=== PATIENT | male | born 1950 | race Caucasian/White ===

== ENCOUNTER 2017-02-22 10:05 | Inpatient (IN) | payer MEDICARE, OTHER ==
[~2017-02-22] VITALS: Ht 182.9 cm; Wt 100.0 kg
[2017-02-22] VITALS (9 sets, daily range): BP systolic 126–141; BP diastolic 62–80; PULSE 60–98; RESP 14–20; O2SAT 95–98
[~2017-02-22 10:05] MED LIST: ASPI-973 PO; Bupivacaine Liposome 1.3% 20 mL Inj NERVEBLOCK ONE; Lactated Ringer's 1,000 ML IV ONE; NAPR220C11 PO; Tranexamic Acid 100 mg/mL 10 mL Inj IV ONE; Vancomycin Inj 1,500 MG in 0.9% Sodium Chloride 500 ML IV ONE
[2017-02-22] MEDS ORDERED: Propofol 10,000 mCg/mL 20 mL Inj ONE (10:06)
[2017-02-22] MEDS ORDERED: Dexamethasone 4 mg/mL Inj ONE (10:06)
[2017-02-22] MEDS ORDERED: fentaNYL-PF 50 mCg/mL 2 mL Inj ONE (10:06)
[2017-02-22] MEDS ORDERED: Ondansetron 2 mg/mL 2 mL Inj ONE ×2 (10:06→10:29)
[2017-02-22] MEDS ORDERED: HYDROmorphone 1 mg/mL Inj ONE (10:29)
[2017-02-22] MEDS ORDERED: Tranexamic Acid 100 mg/mL 10 mL Inj ONE (12:23)
[2017-02-22] MEDS ORDERED: Bupivacaine Liposome 1.3% 20 mL Inj ONE (12:23)
[2017-02-22] MEDS ORDERED: 0.9% Sodium Chloride 100 ML ONE (12:24)
[2017-02-22] MEDS ORDERED: Gentamicin 40 mg/mL 2 mL Inj IRRIGATION ONE (12:50)
[2017-02-22] MEDS ORDERED: Bupivacaine-MPF 0.25% 30 mL Inj INFILTRATE ONE (12:51)
[2017-02-22] MEDS: CeFAZolin Inj 2 GM in IV Premix 1 EACH IV ONE ×2 (12:53→13:45)
--- NOTE | 2017-02-22 13:04 | PCM.HPANE ---
Patient Data Surgeon Admitting Provider: Attending Provider:Matt Varghese MD Primary Care Physician:Gabe Mccollum MD Other Provider:[facility] Anest[facility] Reason for Visit Right Knee Pain, S/P Right Knee Replacement RIGHT KNEE PAIN, S/P RIGHT KNEE REPLACEMENT Ht/WT & BMI Height (Feet): 6 Height (Inches): 0 Weight (Kilograms): 98.7 Body Mass Index 29.00 Allergies Coded Allergies: No Known Allergies (Verified , 01/07/04) Uncoded Allergies: No Known Allergies (Allergy, Severe, 04/04/05) Past Anesthesia History Anesthesia History: Denies:: Abnormal Airway, Anesthesia Reactions (minimal nausea ), Difficult Intubation, Fam Anesthesia Reaction, Fam Malignant Hypertherm, Malignant Hyperthermia Diabetes History Hx Diabetes?: No MRSA MRSA: No Medications Hypertension Medication: No Home Meds Incl Beta Frantz: No Reported Medications Naproxen Sodium (Aleve)220 Mg [id number] Mg PO BID PRN For Pain 02/17/17 Aspirin 81 Mg [id number] Mg PO DAILY Ref 0 02/17/17 History History of ENT Problems?: No HEENT History: Denies:: Abnormal Airway Cataracts (laser surgery/ contact in right eye ) Difficult Intubation Dysphagia Glaucoma Hearing Problem Sinus Problem TMJ Denture Type: None Teeth Condition: Within Normal Limits Hx of Heart Problems?: No Cardiovascular History: Denies:: AICD Edema Heart Murmur Hypertension Irregular Heartbeat Pacemaker Peripheral Vascular Rheumatic Fever Hx of Respiratory Problem?: No Respiratory History: Denies:: Asthma COPD Emphysema Oxygen Administration Pneumonia Tuberculosis Use of C-PAP Machine Hx Neurologic Problems?: Yes Neurological History: Denies:: CVA Headaches Multiple Sclerosis Parkinson's Disease Seizures Other Neurological Pertinent: hx of fall from ladder 2014 with occipital fx/ subdural hematoma. Hx of GI Problems?: No Hx of Problems?: No Genitourinary History: Denies:: Kidney Stones Urinary Tract Infection Male Hx: Positive for:: Prostate Problems (prostatectomy) Skin History: Denies:: History Skin Disorders? Pressure Ulcers Hx Musculoskeletal Problems?: Yes Musculoskeletal History: Positive for:: Joint Replacement (bilateral knees) Musculoskeletal Trauma (right knee current admission problem) Osteoarthritis Denies:: Back Injury Systemic Lupus Hx of Psycho/Social Problems?: No Psycho Social History: Denies:: Anxiety Hx Depression Hx Surgeries?: Yes (radical prostatectomy, knee x2) Hx Any Other Health Problems?: Yes Other History: Positive for:: Cancer (prostate) Hospitalization (fall from ladder 2015- occipital fx, subdural hematoma) Denies:: Thyroid Disease History Blood Transfusions: Positive for:: Accept Blood Products? Denies:: Blood Transfusions Hx Diabetes: No Hx Alcohol Use: NoAlcoholic Drinks Per Day: one drink weeklyHx Substance Use: No Smoking Status: Never Smoker Have You Smoked inLast 12 mo: No Stop/Bang S-Snoring: Do You Snore Loudly: Yes T-Tired: feel tired, fatigued: No O-Obsered: Observed not breath: No P-Blood Pressure: treated: No B- Body Mass Index > 35 kg/m2: No A- Age over 50: Yes N- Neck Large Circumference: No G- Gender Male: Yes MIRANDA Total Score: 3 Risk Assessment Category Category 1A: Patient has history of documented sleep apnea, and HAS NOT received any narcotic, sedative or anesthesia administration during this stay. Category 1B: Patient has history of documented sleep apnea, and HAS received any narcotic , sedative or anesthesia administration during this stay Category 2: Patient has SUSPECTED Obstructive Sleep Apnea, and HAS received any narcotic , sedative or anesthesia administration during this stay. Category 3: Patient has SUSPECTED Obstructive Sleep Apnea and HAS NOT received narcotic, sedative or anesthesia administration during this stay. Category 4: Outpatient in Procedural Areas with known sleep apnea or who screen positive for High Risk via the STOP/BANG questionnaire. Exam Exam General Appearance: Alert, Oriented X3, Cooperative, No Acute Distress HEENT/AIRWAY: MP 2 Lungs: Clear to Auscultation Heart: Exam Unremarkable Plan Impression Patient chart reviewed, patient interviewed and anesthestic plan with risks, benefits, and alternatives discussed, and informed consent obtained. ASA Physical Status: ASA1 Normal Healthy Anesthetic Plan: Regional Block, SAB Bene/Risks/Altern/Consents: Yes HP Complete Prior to Induction: Yes Yahir Hu MD February 22, 2017 07:57
[2017-02-22 16:32] LABS: APPEARANCE,URINE CLEAR (CLEAR,HAZY); COLOR,URINE STRAW (YELLOW)
[2017-02-22 16:33] LABS: OCCULT BLOOD,URINE NEGATIVE (NEGATIVE); UROBILINOGEN,URINE NORMAL (NORMAL)
--- NOTE | 2017-02-22 16:41 | PCM.ANEP1 ---
Post Anesthesia Phase 1 PACU Phase 1 Assessment Vital Signs Vital Signs Date Time Temp Pulse Resp B/P Pulse Ox O2 Delivery O2 Flow Rate FiO2 02/22/17 16:29 14 95 02/22/17 16:25 61 15 137/73 95 Room Air 02/22/17 16:20 66 17 138/80 95 Room Air 02/22/17 16:15 36.4 65 16 141/80 96 Room Air 02/22/17 10:41 36.2 60 18 137/75 98 Room Air Anesthetic Administered: Regional Block, SAB Level of Alertness: Awake, talking MACKAY's with Equal Strength: No (spinal) Pain: No Nausea or Vomiting: No Oxygen Delivery: Room Air Lungs: Clear to Auscultation Dermatome Level: L1,2 (Groin) Complications: No Yahir Hu MD February 22, 2017 16:41
--- NOTE | 2017-02-22 17:00 | NUR ---
Arrival to [facility] Rm 1023 from OR 1700 Pt arrived to [facility] Rm 1023; A&Ox3, answering questions appropriately, VSS, no c/o pain, IV LR infusing 60mls/hr; murphy cath in place draining to gravity. Family at bs. Will continue to monitor with frequent rounds.
[2017-02-22] MEDS ORDERED: Sodium Biphos-Phos 133 mL Enema RECTAL PRN (17:40)
[2017-02-22] MEDS ORDERED: diphenhydrAMINE 25 mg Capsule PO PRN (17:40)
[2017-02-22] MEDS ORDERED: Alum-Mag Hydrox-Simeth 30 mL Suspension PO PRN (17:40)
[2017-02-22] MEDS ORDERED: Magnesium Hydroxide 10 mL Oral Concentration PO PRN (17:40)
[2017-02-22] MEDS ORDERED: Acetaminophen IV 1,000 MG in IV Premix 1 EACH IV PRN (17:40)
[2017-02-22] MEDS: Lactated Ringer's 1,000 ML IV SCH (18:17)
[2017-02-23] VITALS (10 sets, daily range): BP systolic 95–166; BP diastolic 57–87; PULSE 56–95; RESP 10–23; O2SAT 94–99
--- NOTE | 2017-02-23 01:14 | NUR ---
Activity Patient alert and oriented x3 and moves all extremities. No complaint of numbness or tingling in RLE. Patient does not state any pain. Patient refused Colace; patient stated he did not want to get up during the night to use the bathroom. Orders state to change linen, gown , and scrub right knee with hibi-clens before going to the OR. Patient resting comfortably. Call light within reach. Care continues.
[2017-02-23] MEDS ORDERED: CeFAZolin Inj 2 GM in IV Premix 1 EACH IV ONE (06:00)
[2017-02-23] MEDS: Vancomycin 1 Gm/200 mL NS Premix IV SCH ×2 (06:33→08:00)
--- NOTE | 2017-02-23 07:26 | PCM.HPANE ---
Patient Data Date of Service: February 23, 2017 Surgeon Admitting Provider: Attending Provider:Matt Varghese MD Primary Care Physician:Gabe Mccollum MD Other Provider:Jhony Berger Anesthesia Reason for Visit Right Knee Pain, S/P Right Knee Replacement RIGHT KNEE PAIN, S/P RIGHT KNEE REPLACEMENT Ht/WT & BMI Height (Feet): 6 Height (Inches): 0.00 Weight (Kilograms): 100.000 Body Mass Index 29.86 Allergies Coded Allergies: No Known Allergies (Verified , 01/07/04) Uncoded Allergies: No Known Allergies (Allergy, Severe, 04/04/05) Past Anesthesia History Anesthesia History: Denies:: Abnormal Airway, Anesthesia Reactions (minimal nausea ), Difficult Intubation, Fam Anesthesia Reaction, Fam Malignant Hypertherm, Malignant Hyperthermia Diabetes History Hx Diabetes?: No MRSA MRSA: No Medications Hypertension Medication: No Home Meds Incl Beta Frantz: No Reported Medications Naproxen Sodium (Aleve)220 Mg [id number] Mg PO BID PRN For Pain 02/17/17 Aspirin 81 Mg Aalpvm64 Mg PO DAILY Ref 0 02/17/17 History History of ENT Problems?: No HEENT History: Denies:: Abnormal Airway Cataracts (laser surgery/ contact in right eye ) Difficult Intubation Dysphagia Glaucoma Hearing Problem Sinus Problem TMJ Denture Type: None Teeth Condition: Within Normal Limits Hx of Heart Problems?: No Cardiovascular History: Denies:: AICD Chest Pain Edema Heart Murmur Hypertension Irregular Heartbeat Pacemaker Peripheral Vascular Rheumatic Fever Hx of Respiratory Problem?: No Respiratory History: Denies:: Asthma COPD Emphysema Oxygen Administration Pneumonia Tuberculosis Use of C-PAP Machine Hx Neurologic Problems?: Yes Neurological History: Denies:: CVA Headaches Multiple Sclerosis Parkinson's Disease Seizures TIA Other Neurological Pertinent: hx of fall from ladder 2014 with occipital fx/ subdural hematoma. Hx of GI Problems?: No Hx of Problems?: No Genitourinary History: Denies:: Kidney Stones Urinary Tract Infection Male Hx: Positive for:: Prostate Problems (prostatectomy) Skin History: Denies:: History Skin Disorders? Pressure Ulcers Hx Musculoskeletal Problems?: Yes Musculoskeletal History: Positive for:: Joint Replacement (bilateral knees) Musculoskeletal Trauma (right knee current admission problem) Osteoarthritis Denies:: Back Injury Systemic Lupus Hx of Psycho/Social Problems?: No Psycho Social History: Denies:: Anxiety Hx Depression Hx Surgeries?: Yes (radical prostatectomy, knee x2) Hx Any Other Health Problems?: Yes Other History: Positive for:: Cancer (prostate) Hospitalization (fall from ladder 2015- occipital fx, subdural hematoma) Denies:: Thyroid Disease History Blood Transfusions: Positive for:: Accept Blood Products? Denies:: Blood Transfusions Hx Diabetes: No Hx Alcohol Use: NoAlcoholic Drinks Per Day: one drink weekly Hx Substance Use: No Smoking Status: Never Smoker Have You Smoked inLast 12 mo: No Stop/Bang Treated for Sleep Apnea?: No Do You Have a CPAP Machine?: No S-Snoring: Do You Snore Loudly: Yes T-Tired: feel tired, fatigued: No O-Obsered: Observed not breath: No P-Blood Pressure: treated: No B- Body Mass Index > 35 kg/m2: No A- Age over 50: Yes N- Neck Large Circumference: No G- Gender Male: Yes MIRANDA Total Score: 3 MIRANDA Risk Assessment: Low Risk, <3 Yes Risk Assessment Category Category 1A: Patient has history of documented sleep apnea, and HAS NOT received any narcotic, sedative or anesthesia administration during this stay. Category 1B: Patient has history of documented sleep apnea, and HAS received any narcotic , sedative or anesthesia administration during this stay Category 2: Patient has SUSPECTED Obstructive Sleep Apnea, and HAS received any narcotic , sedative or anesthesia administration during this stay. Category 3: Patient has SUSPECTED Obstructive Sleep Apnea and HAS NOT received narcotic, sedative or anesthesia administration during this stay. Category 4: Outpatient in Procedural Areas with known sleep apnea or who screen positive for High Risk via the STOP/BANG questionnaire. Exam Exam Vital Signs Vital Signs Date Time Temp Pulse Resp B/P Pulse Ox O2 Delivery O2 Flow Rate FiO2 02/23/17 05:55 36.6 95 20 143/80 99 Room Air 02/23/17 04:50 95/60 110/70 General Appearance: Alert, Oriented X3, Cooperative, No Acute Distress HEENT/AIRWAY: MP 2, Neck Movement (FROM), Mouth Opening (>3), Other (tmd>3) Lungs: Clear to Auscultation Heart: Exam Unremarkable, Regular Rate/Rhythm, Normal S1, Normal S2, No Murmurs /Rubs/Gallops Meds/Labs/Diagnostics Admission Meds Current Medications Sodium Chloride (Normal Saline) 100 ml @ ud STK-MED ONCE .ROUTE Last administered on 02/22/17 12:24; Start 02/22/17 at 12:24; Stop 02/22/17 at 12:27 ; Status DC Gentamicin Sulfate (Gentamicin Inj) 80 mg STK-MED ONCE IRRIGATION Last administered on 02/22/17 12:50; Start 02/22/17 at 12:50; Stop 02/22/17 at 12:54 ; Status DC Bupivacaine HCl (Sensorcaine-MPF 0.25% Inj) 30 ml STK-MED ONCE INFILTRATE Last administered on 02/22/17 12:51; Start 02/22/17 at 12:51; Stop 02/22/17 at 12:54 ; Status DC Ketorolac Tromethamine 30 mg 30 mg STK-MED ONCE IV Last administered on 12:51; Start 02/22/17 at 12:51; Stop 02/22/17 at 12:54; Status DC Lactated Ringer's 1,000 ml @ 60 mls/hr [id number] IV Last administered on 18:17; Start 02/22/17 at 17:35 Vancomycin/0.9 % Sod Chloride/ Premix (Vancomycin Inj/ IV Premix) 200 ml @ 133.333 mls/hr PREOP IV Last administered on 02/23/17 06:33; Start 02/23/17 at 06:00 Labs Test 02/22/17 16:13 Urine Color Straw (YELLOW) Urine Appearance Clear (CLEAR,HAZY) Urine pH 6.0 (5.0-8.0) Urine Specific [place] 1.010 (1.003-1.035) Urine Protein Negativemg/dL (NEG,TRACE) Urine Glucose (UA) Negativemg/dL (NEGATIVE) Urine Ketones 15mg/dL (NEGATIVE) Urine Occult Blood Negative (NEGATIVE) Urine Nitrite Negative (NEGATIVE) Urine Bilirubin Negative (NEGATIVE) Urine Urobilinogen Normalmg/dL (NORMAL) Urine Leukocyte Esterase Negative (NEGATIVE) Urine RBC 0-2/hpf (0-2) Urine WBC 0-5/hpf (0-5) Urine Epithelial Cells None/hpf (NONE-MOD) Urine Crystals None seen (NONE SEEN) Urine Bacteria Few/hpf (NONE-FEW) Urine Hyaline Casts None/lpf (NONE) Urine Granular Casts None seen (NONE SEEN) Urine Waxy Casts None seen (NONE SEEN) Urine Red Blood Cell Casts None seen (NONE SEEN) Urine White Blood Cell Casts None seen (NONE SEEN) Urine Mucus None seen (None Seen) Urine Trichomonas None seen (NONE SEEN) Urine Yeast None (NONE SEEN) Urinalysis Comment None Urine Culture Reflexed Not indicated Plan Impression Patient chart reviewed, patient interviewed and anesthestic plan with risks, benefits, and alternatives discussed, and informed consent obtained. NPO per Anesth. Guidelines: Yes ASA Physical Status: ASA1 Normal Healthy Anesthetic Plan: GA Bene/Risks/Altern/Consents: Yes HP Complete Prior to Induction: Yes Other Pt still has residual femoral block from 02/22/17. Procedure estimated 2+ hrs per surgeon. Most appropriate anesthetic consider GA-Airway. Offer of proximal adductor canal post-op if necessary for pain management. Will pre-medicate for PONV w/ scopolamine (side-effects addressed), dexamethasone, metoclopramide and ondansetron. Patient, spouse and surgeon are in agreement with anesthetic plan. Lavelle Dejesus MD February 23, 2017 07:26
[2017-02-23] MEDS ORDERED: Bupivacaine Liposome 1.3% 20 mL Inj ONE (07:28)
[2017-02-23] MEDS ORDERED: Famotidine 20 mg/50 mL NS Premix IV ONE (07:39)
[2017-02-23] MEDS ORDERED: Ondansetron 2 mg/mL 2 mL Inj IVPUSH PRN ×2 (07:40→08:30)
[2017-02-23] MEDS ORDERED: Vancomycin Dose per Pharmacist XX ONE (07:40)
[2017-02-23] MEDS ORDERED: Sodium Biphos-Phos 133 mL Enema RECTAL PRN (07:40)
[2017-02-23] MEDS ORDERED: Magnesium Hydroxide 10 mL Oral Concentration PO PRN (07:40)
[2017-02-23] MEDS ORDERED: Ketorolac 15 mg/mL Inj IVPUSH PRN (07:40)
[2017-02-23] MEDS ORDERED: Polyethylene Glycol (PEG) 17 Gm Powder PO PRN (07:40)
[2017-02-23] MEDS ORDERED: MetoCLOpramide 5 mg/mL 2 mL Inj IVPUSH PRN ×2 (07:40→08:30)
[2017-02-23] MEDS ORDERED: HYDROmorphone 1 mg/mL Inj IVPUSH PRN ×2 (07:40→08:30)
[2017-02-23] MEDS ORDERED: diphenhydrAMINE 25 mg Capsule PO PRN (07:40)
[2017-02-23] MEDS ORDERED: Tranexamic Acid 100 mg/mL 10 mL Inj ONE (08:11)
[2017-02-23] MEDS ORDERED: 0.9% Sodium Chloride 100 ML ONE (08:11)
[2017-02-23] MEDS ORDERED: Bupivacaine Liposome 1.3% 20 mL Inj INFILTRATE ONE (08:17)
[2017-02-23] MEDS ORDERED: Bupivacaine-MPF 0.25%/EPI 30 mL Inj INJ ONE (08:17)
[2017-02-23] MEDS ORDERED: Lactated Ringer's 1,000 ML IV ONE (08:19)
[2017-02-23] MEDS ORDERED: Gentamicin 40 mg/mL 2 mL Inj IRRIGATION ONE (08:19)
[2017-02-23] MEDS ORDERED: Lactated Ringer's 1,000 ML IV SCH (08:28)
[2017-02-23] MEDS ORDERED: Lactated Ringer's 500 ML IV PRN (08:28)
[2017-02-23] MEDS ORDERED: Dexamethasone 4 mg/mL Inj IVPUSH PRN (08:30)
[2017-02-23] MEDS: Sodium Chloride LOK Flush 10 mL Syringe IV SCH ×2 (08:30→16:30)
[2017-02-23] MEDS ORDERED: EPHEDrine Sulfate 50 mg/mL Inj IVPUSH PRN (08:30)
[2017-02-23] MEDS ORDERED: Phenylephrine 10,000 mCg/mL Inj IVPUSH PRN (08:30)
[2017-02-23] MEDS: Senna-Docusate 8.6-50 mg Tablet PO SCH ×2 (08:30→20:42)
[2017-02-23] MEDS ORDERED: Tranexamic Acid 100 mg/mL 10 mL Inj TOPICAL ONE (09:04)
[2017-02-23] MEDS ORDERED: Dexamethasone 4 mg/mL Inj ONE (10:40)
[2017-02-23] MEDS ORDERED: HYDROmorphone 2 mg/mL Inj ONE (10:40)
[2017-02-23] MEDS ORDERED: MetoCLOpramide 5 mg/mL 2 mL Inj ONE (10:40)
[2017-02-23] MEDS ORDERED: Ondansetron 2 mg/mL 2 mL Inj ONE (10:40)
[2017-02-23] MEDS ORDERED: Lidocaine PF 1% 30 mL Inj ONE (10:40)
[2017-02-23] MEDS ORDERED: Propofol 10,000 mCg/mL 20 mL Inj ONE (10:40)
[2017-02-23] MEDS: fentaNYL-PF 50 mCg/mL 2 mL Inj IVPUSH PRN ×3 (12:11→12:49)
--- NOTE | 2017-02-23 12:25 | DRSVH ---
PROCEDURE: X-RAY RIGHT KNEE, ONE OR TWO VIEWS ([id number]) INDICATIONS: postop TECHNIQUE: 2 view(s) of the knee acquired. COMPARISON: None. FINDINGS: Bones: Patient is status post knee joint arthroplasty. Hardware components are in expected position s. Visualized bony structures are intact. Soft tissues: Overlying postoperative changes are noted. IMPRESSION: Status post right knee arthroplasty. Dictated by: Lashae Anderson M.D. on 02/23/2017 at 12:23 Approved by: Lashae Anderson M.D. on 02/23/2017 at 12:24
--- NOTE | 2017-02-23 12:44 | NUR ---
Back on Unit Patient back on floor from PACU in stable condition. VSS. A&Ox3. Patient reported 5/10 knee pain. 2 [place] and 50mg of Vistaril given. Denies nausea at this time. Ice in place. Water, crackers, and pudding given to patient. HemoVac clamped until 1630. at bedside. Call light and tray table within reach. Will continue to monitor patient hourly.
[2017-02-23] MEDS: hydrOXYzine Pamoate 25 mg Capsule PO PRN ×2 (13:09→17:06)
[2017-02-23] MEDS: Lactated Ringer's 1,000 ML IV SCH (13:10)
[2017-02-23] MEDS: HYDROcodone-APAP 5-325 mg Tablet PO PRN ×2 (13:12→17:06)
[2017-02-23] MEDS ORDERED: Vancomycin Inj 1,500 MG in 0.9% Sodium Chloride 500 ML IV ONE (20:30)
[2017-02-24] MEDS: Sodium Chloride LOK Flush 10 mL Syringe IV SCH ×4 (00:30→20:59)
--- NOTE | 2017-02-24 01:27 | NUR ---
Pain On initial assessment, patient reported pain at 5/10 on pain scale. Toradol IVP administered. Patient able to wiggle toes and pedal pulse strong on right side. Ice bag on right knee area. Patient stated he wanted to rest. VSS. Call light within reach. Care continues.
[2017-02-24] MEDS: Lactated Ringer's 1,000 ML IV SCH ×2 (02:55→19:35)
[2017-02-24 05:13] VITALS: BP 124/68; PULSE 57; RESP 16; O2SAT 96
[2017-02-24 07:25] LABS: Mean Corpuscular Volume 93.6 fL (81-100)
[2017-02-24] MEDS: hydrOXYzine Pamoate 25 mg Capsule PO PRN ×4 (08:11→22:27)
[2017-02-24] MEDS: Senna-Docusate 8.6-50 mg Tablet PO SCH ×2 (08:11→20:58)
[2017-02-24] MEDS: HYDROcodone-APAP 5-325 mg Tablet PO PRN ×4 (08:13→22:27)
[2017-02-24 08:34] VITALS: BP 132/76; PULSE 58; RESP 17; O2SAT 97
--- NOTE | 2017-02-24 09:43 | PCM.PNORTH ---
Subjective Date of Service: February 24, 2017 Visit Information: Reason for Visit Right Knee Pain, S/P Right Knee Replacement Surgery/Surgery Date R Knee revision UKA to TKA 02/23/17 Post-Op Day # 1 Date of Admission: February 22, 2017 at 16:57 Hospital Day # Subjective Patient has already been up with physical therapy today. He is using hydrocodone for pain. The drain has had quite a bit of output. It had 270 yesterday. Drain was clamped this morning for a few hours and then reopened. It has put out 100 mL. Patient feels that he is doing pretty good. He does not he will be ready for home tomorrow. He has a little bit of a sore throat. Patient has compression stockings at home. Postop General: No Shortness of Breath, No Chest Pain, Good Appetite Pain Management: PO Objective Exam Objective Patient is seen sitting up in a chair Vital Signs and I/O Vital Sign - Last Date Time Temp Pulse Resp B/P Pulse Ox O2 Delivery O2 Flow Rate FiO2 02/24/17 08:34 36.7 58 17 132/76 97 Room Air 02/23/17 12:49 3.00 Intake and Output 02/23/17 02/23/17 02/24/17 Cumulative From/Thru 15:00 23:00 07:00 02/17/17 10:47 - 02/24/17 06:44 Intake Total 1150 ml 400 ml 1656 ml 4664 ml Output Total 760 ml 600 ml 570 ml 5080 ml Balance 390 ml -200 ml 1086 ml -416 ml Intake Oral 400 ml 150 ml 1230 ml IV Total 1150 ml 1506 ml 3434 ml Output Urine Total 560 ml 300 ml 300 ml 4310 ml Drainage Total 300 ml 270 ml 570 ml Estimated Blood Loss 200 ml 200 ml Lab & Micro Results Laboratory Tests Test 02/24/17 06:35 White Blood Count 12.4th/mm3 (3.8-10.1) Red Blood Count 3.77mil/mm3 (4.40-5.80) Hemoglobin 11.3g/dL (13.8-17.2) Hematocrit 35.3% (41.0-50.0) Mean Corpuscular Volume 93.6fL (81-100) Mean Corpuscular Hemoglobin 30.0pg (27.0-35.0) Mean Corpuscular Hemoglobin Concent 32.0% (32.0-37.0) Red Cell Distribution Width 14.2% (12.3-15.4) Platelet Count 257bil/L (150-400) Result Diagram: 02/24/17 0635 General Appearance: Alert, Oriented X3, Cooperative, No Acute Distress Extremities: Distal Pulses Palpable, No Compartment Syndrom Noted, Thigh & Calf Soft/Nontender Postop Sensory Motor: Distal Motor Intact, NVI Distally SURGICAL WOUND : Wound Location/Description Dressing is clean, dry and intact. Drain Location Body Site: Knee Incision General Appearance: No Direct Observation Wound Drainage Type: Hemovac Activity: Activity per PT, Ambulate with PT Catheters: None Assessment & Plan Impression Postop day 1 right knee revision from uni-to total knee arthroplasty Problems: Plan Weightbearing: Weightbearing as tolerated with walker DVT prophylaxis: aspirin 81 mg twice a day 6 weeks Physical therapy for transfers, progressive ambulation, therapeutic exercise Wound care: PA will change dressing tomorrow morning The Hemovac drain in place until tomorrow morning Discharge plan: Discharge home tomorrow. Start outpatient physical therapy next week Follow-up plan: In 2 weeks at [facility] with PA for wound check and at [address] Varghese with x-rays Pain Management: [place], vistaril, toradol VTE Prophylaxis: SCDs, Other (Aspirin 82 mg QD) Resuscitation Status: CPR: Attempt Resuscitation [place] K[place] PA-C February 24, 2017 09:42
[2017-02-24 12:51] VITALS: BP 117/65; PULSE 64; RESP 16; O2SAT 98
--- NOTE | 2017-02-24 13:25 | NUR ---
Hemovac Hemovac output was high overnight; per ZABRINA Boucher RN clamped hemovac until 929. Hemovac unclamped at this time and had 100cc output in 3 hour period. Per Niurka Polanco, hemovac to be kept in place until AM of 02/25. When transferring from chair to bed, tubing became disconnected. Niurka notified and order received to DC hemovac, gauze and Tegaderm in place; compression wrap replaced.
--- NOTE | 2017-02-24 15:37 | NUR ---
Social Work: Initial Assessment/Readiness for Discharge D: EMR reviewed. Pt is a 67 y/o male admitted for right knee pain, S/P right knee replacement per H&P. ANALI met with pt at bedside to conduct initial assessment. Pt was alert and oriented x3. SW explained role and wrote number on white board. Pt's insurance is Medicare and [employer]. PCP is Gabe Mccollum MD. ANALI confirmed that pt has completed DPOA/advanced directive ppw and copy is on file. Pt has not LTC or VA insurance. Pt has no HH or SNF Hx. Pt is independent with ADLs. Pt owns [employer] and no other DME. Pt is independent at baseline. Pt drives. Pt lives at home with spouse in [place]. PT recommend pt's to return home with outpt PT and FWW for rehabilitation. ANALI confirmed pt has scheduled outpt PT for 03/[address] Leonides Olivares. Pt's spouse to provide transport when pt is medically stable. ANALI does not anticipate any discharge needs at this time. ANALI will continue to follow. A: Pt who is independent at baseline. Pt for whom outpt PT and FWW have been deemed medically necessary for rehabilitation. P: Pt to discharge home with spouse via POV when medically stable. Pt to start outpt PT on 03/[address] Leonides Olivares. No anticipated discharge needs at this time. ANALI will continue to follow. HENRI Gonzalez Addendum: 02/24/17 at 1545 by VANNESSA CARSON SS Amended: Links added.
[2017-02-24 16:56] VITALS: BP 128/71; PULSE 66; RESP 16; O2SAT 98
[2017-02-24 19:18] VITALS: BP 128/67; PULSE 66; RESP 18; O2SAT 97
--- NOTE | 2017-02-25 04:53 | NUR ---
pain / skin Right knee dressing CDI, donavan wrap removed for skin check; previous hemovac site dressing saturated w/ sang drainage, cleansed w/ NS, two 2/2 gauze applied, covered w/ tegaderm. patient tolerated well. Ice packs thru the night helpful. prn [place] (two tabs) and Vistaril (two tabs) effective for BTP in noc; declined offer of additional med at 0430, states he would prefer to be medicated prior to physical therapy this morning. Will pass on to next shift. VS are stable. CTM for changes.
[2017-02-25 05:39] VITALS: BP 133/75; PULSE 66; RESP 18; O2SAT 98
[2017-02-25 06:35] LABS: Mean Corpuscular Hemoglobin 30.3 pg (27.0-35.0); Mean Corpuscular Volume 93.8 fL (81-100)
[2017-02-25] MEDS ORDERED: Magnesium Hydroxide 10 mL Oral Concentration PO PRN (08:35)
--- NOTE | 2017-02-25 08:45 | PCM.PNORTH ---
Subjective Date of Service: February 25, 2017 Visit Information: Reason for Visit Right Knee Pain, S/P Right Knee Replacement Surgery/Surgery Date R TKA REVISION 02/22/17 & 02/23/17 Post-Op Day # 2 Date of Admission: February 22, 2017 at 16:57 Hospital Day # Subjective Hemovac drain came out yesterday afternoon. There has been some drainage from the portal site. This is redressed last night. Patient ambulated well with physical therapy and walked 200 feet yesterday Postop General: No Shortness of Breath, No Chest Pain, Good Appetite Pain Management: PO Objective Exam Objective Patient is seen lying in bed Vital Signs and I/O Vital Sign - Last Date Time Temp Pulse Resp B/P Pulse Ox O2 Delivery O2 Flow Rate FiO2 02/25/17 05:39 36.8 66 18 133/75 98 Room Air 02/23/17 12:49 3.00 Intake and Output 02/24/17 02/24/17 02/25/17 Cumulative From/Thru 15:00 23:00 07:00 02/17/17 10:47 - 02/25/17 06:18 Intake Total 800 ml 440 ml 5904 ml Output Total 1100 ml 1900 ml 8080 ml Balance -300 ml -1460 ml -2176 ml Intake Oral 800 ml 440 ml 2470 ml IV Total 3434 ml Output Urine Total 950 ml 1900 ml 7160 ml Drainage Total 150 ml 720 ml Estimated Blood Loss 200 ml # Bowel Movements 0 0 0 Lab & Micro Results Laboratory Tests Test 02/25/17 05:45 White Blood Count 9.2th/mm3 (3.8-10.1) Red Blood Count 3.57mil/mm3 (4.40-5.80) Hemoglobin 10.8g/dL (13.8-17.2) Hematocrit 33.5% (41.0-50.0) Mean Corpuscular Volume 93.8fL (81-100) Mean Corpuscular Hemoglobin 30.3pg (27.0-35.0) Mean Corpuscular Hemoglobin Concent 32.2% (32.0-37.0) Red Cell Distribution Width 13.7% (12.3-15.4) Platelet Count 258bil/L (150-400) Result Diagram: 02/25/17 0545 General Appearance: Alert, Oriented X3, Cooperative, No Acute Distress Extremities: Distal Pulses Palpable, No Compartment Syndrom Noted, Thigh & Calf Soft/Nontender Postop Sensory Motor: Distal Motor Intact, NVI Distally SURGICAL WOUND : Wound Location/Description Right knee: Dressing is removed. There is mild serous drainage from the drain portal. The surgical incision has dried serous drainage on the bandage but no acute drainage. There is no erythema present. The wound is well approximated. Steri-Strips are in place. The knee was cleansed with hydrogen peroxide. A 2 x 2 gauze and Tegaderm dressing was placed over the drain site. The surgical incision was dressed with [place] dressing covered with an island dressing. Activity: Activity per PT, Ambulate with PT Catheters: None Assessment & Plan Impression POD #2 right total knee arthroplasty Problems: Plan Weightbearing: Weightbearing as tolerated with walker DVT prophylaxis: aspirin 81 mg twice a day 6 weeks Physical therapy for transfers, progressive ambulation, therapeutic exercise Wound care: Dressing change by PA to an Island dressing. New dressing placed over portal site of Hemovac drain Discharge plan: Discharge home today after morning session of physical therapy. Start outpatient physical therapy next week Discharge instructions are reviewed with patient Please place compression stocking on lower extremities prior to discharge Follow-up plan: In 2 weeks at [facility] with PA for wound check and at [address] Varghese with x-rays Pain Management: [place], Toradol, Vistaril VTE Prophylaxis: SCDs, Other (Aspirin 82 mg QD) Resuscitation Status: CPR: Attempt Resuscitation Rea Britt PA-C February 25, 2017 08:45
[2017-02-25] MEDS: Senna-Docusate 8.6-50 mg Tablet PO SCH (08:46)
[2017-02-25] MEDS: Sodium Chloride LOK Flush 10 mL Syringe IV SCH (08:46)
[2017-02-25] MEDS: HYDROcodone-APAP 5-325 mg Tablet PO PRN (08:47)
--- NOTE | 2017-02-25 08:47 | PCM.DIORTH ---
Ortho Discharge Instruction Date of Service: February 25, 2017 Dates of Hospitalization Date of Hospital Admission February 22, 2017 at 16:57 Providers Admitting Physician: Matt Varghese MD Primary Care Physician: Gabe Mccollum MD Attending Physician: Matt Varghese MD Diet Discharge Diet: No restrictions Activity Discharge Activity-General: Be up and about, Balance rest and activity, Elevate & ice extremity Right Lower Extremity: Weight Bearing as tolerated Discharge Assist Device: Front Wheeled Walker Dressing and Incisional Care Discharge Dressing Care: Keep dressing clean, dry & intact (see instructions below for changing dressing) Discharge Hygiene: May shower (see instructions below), DO NOT soak incision under water (for 2 weeks), NO bathtub, hot tub or whirlpool (for 2 weeks) Additional Instructions Discharge Instructions Weightbearing: Weightbearing as tolerated with walker DVT prophylaxis: aspirin 81 mg twice a day 6 weeks Wound care: change dressing every 1-2 days as needed. Leave clear dressing over the drain site in place for 2 days. Drain site - place 2x2 gauze in center of Tegaderm, place over drain site Surgical incision - remove dressing, get the Silver dressing wet with the saline syringe, cover with super long bandage Wear compression stockings for 1 week on left leg, and 4 weeks on surgical leg. May remove at night if you wish. Ice and elevate the leg 6-10 times per day. As you are up and around on your feet more, the leg will tend to swell. He may need to lay down every afternoon and elevate the leg above the heart for an hour or 2 with the leg on pillows Every hour of the day that you are awake, get up and walk or do some of the exercises from therapy. Push your with bending and straightening. Showering: Cover wound with plastic wrap. If the dressing gets wet, change the dressing. After a week, you may shower with the wound uncovered if there is no drainage present. Let soap and water run over the wound, pat dry and apply a new dressing. Start outpatient physical therapy next week Follow Up Plan Follow Up Plan Follow-up plan: In 2 weeks at [facility] with JESSICA for wound check and at [address] Varghese with x-rays Call your provider for: Fever, Chills, Shortness of breath, Vomitting, Drainage at incision, Wound redness NorforkRea Kothari PA-C 18, 2017 08:47
[2017-02-25 09:07] VITALS: BP 129/75; PULSE 80; RESP 17; O2SAT 99
--- NOTE | 2017-02-25 09:15 | PCM.ANEP1 ---
Post Anesthesia PACU Phase 1 Assessment Vital Signs Vital Signs Date Time Temp Pulse Resp B/P Pulse Ox O2 Delivery O2 Flow Rate FiO2 02/25/17 09:07 36.6 80 17 129/75 99 Room Air 02/25/17 05:39 36.8 66 18 133/75 98 Room Air Anesthetic Administered: GA Level of Alertness: Awake, talking MACKAY's with Equal Strength: No (residural femoral nerve block from day before) Pain: No Pain Scale Score: 0 Nausea or Vomiting: No CV Function and Hydration: Yes Airway Device: none - LMA removed Oxygen Delivery: Simple Mask Lungs: Clear to Auscultation Dermatome Level: L1,2 (Groin) PACU Phase 2 Assessment Complications: No Patient Instructions Provided: Yes Comments 02/25/17 05:39 36.8 66 18 133/75 98 Room Air Lavelle Dejesus MD February 25, 2017 09:14
[2017-02-25] MEDS ORDERED: HYDR-3797 PO (09:41)
[2017-02-25] MEDS ORDERED: HYDR-4003 PO (09:41)
[2017-02-25] MEDS ORDERED: ASPI-973 PO (09:41)
[2017-02-25] MEDS ORDERED: DOCU-41 PO (09:41)
--- NOTE | 2017-02-25 09:51 | PCM.DC.ORT ---
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 Patient received a spinal block and anesthesia however before the surgical procedure was initiated , it was found that the necessary surgical implants were not in the hospital. The surgery was aborted. Surgery was rescheduled for the next day. On 2016 patient underwent the above procedure. Antibiotic prophylaxis consisting of Ancef and vancomycin. The surgeon was Dr. Varghese. Patient tolerated the procedure well and was transferred to PACU in stable condition. After the patient had recovered, he was transferred to [facility]. Patient had physical therapy to work on ambulation and transfers. Weightbearing as tolerated with walker. Pain was managed with Purmela, Vistaril, and Toradol. DVT prophylaxis: aspirin 81 mg twice a day, SCD's and compression stockings. The Hemovac drain the tubing on the afternoon of postop day 1 and was therefore discontinued. Patient progressed well with physical therapy and on POD-2 was discharged home. Follow-up: at [facility] 2 weeks postop for wound check and at [address] Varghese with x-ray Diagnosis at Time of Discharge Status post right knee revision arthroplasty Problems: Disposition: Discharged home in stable condition with his to assist in his care Additional Information Follow-up plan: In 2 weeks at [facility] with PA for wound check and at [address] Varghese with x-rays Discharge Instructions: Weightbearing: Weightbearing as tolerated with walker DVT prophylaxis: aspirin 81 mg twice a day 6 weeks Wound care: change dressing every 1-2 days as needed. Leave clear dressing over the drain site in place for 2 days. Drain site - place 2x2 gauze in center of Tegaderm, place over drain site Surgical incision - remove dressing, get the Silver dressing wet with the saline syringe, cover with super long bandage Wear compression stockings for 1 week on left leg, and 4 weeks on surgical leg. May remove at night if you wish. Ice and elevate the leg 6-10 times per day. As you are up and around on your feet more, the leg will tend to swell. He may need to lay down every afternoon and elevate the leg above the heart for an hour or 2 with the leg on pillows Every hour of the day that you are awake, get up and walk or do some of the exercises from therapy. Push your with bending and straightening. Showering: Cover wound with plastic wrap. If the dressing gets wet, change the dressing. After a week, you may shower with the wound uncovered if there is no drainage present. Let soap and water run over the wound, pat dry and apply a new dressing. Start outpatient physical therapy next week Aspirin (Aspirin) 81 Mg Tablet 81 MG PO BID Docusate Sodium (Colace) 100 Mg Capsule 200 MG PO BID PRN PRN For Constipation Hydrocodone-Acetaminophen 5-325 mg (Hydrocodone-Acetaminophen 5-325 mg) 1 Each Tablet 1-2 TABLET PO Q4H PRN PRN For Moderate Pain Max 8 per day Hydroxyzine Pamoate (HydrOXYzine Pamoate) 25 Mg Capsule 25 MG PO Q4H PRN PRN For Restlessness Rea Britt PA-C February 25, 2017 09:51
--- NOTE | 2017-02-25 11:08 | NUR ---
Social Work- Discharge D: EMR reviewed. Pt is on day 3 of hospitalization for right knee pain, S/P right knee replacement per H&P. Pt is POD 2. Pt is medically stable to discharge today. PUBLIC HEALTH WORKER met with pt and at bedside regarding discharge plan. Pt agreeable to discharge. SW confirmed pt has scheduled outpt PT for 03/[address] Leonides Olivares. Pt's spouse to provide transport via POV. No discharge needs identified. A: Pt who is independent at baseline. P: Pt to discharge home with spouse via POV. Pt to start outpt PT on 03/[address] Leonides Olivares. No discharge needs at this time. Genevieve Smith, PUBLIC HEALTH WORKER
--- NOTE | 2017-02-25 12:11 | NUR ---
Discharge Pt left with at 1215 via private car. IV removed. A&Ox3, Vitals stable, all discharge questions answered. Dressing change supplies given by . Follow up apts already made.
--- NOTE | 2017-03-04 14:07 | OP ---
[address] [address] OPERATIVE REPORT PATIENT: BAM TAVAREZ : 1950 MR#: [id number] ADMIT: 02/22/2017 JOB ID: [id number] DATE OF SURGERY: 02/23/2017 PREOPERATIVE DIAGNOSIS(ES): Failed right knee unicompartmental knee arthroplasty. POSTOPERATIVE DIAGNOSIS(ES): Failed right knee unicompartmental knee arthroplasty. PROCEDURE: Revision to revision total knee arthroplasty. SURGEON: Matt Varghese MD STORAGE SPECIALIST: Gillian Whittaker PA-C. Farm Operator required due to the major complexity of the operation. INDICATIONS: This gentleman has had a unicompartmental knee arthroplasty which has been functional for many years. It has subsided in his tibia and requires revision. The patient understands and accepts the potential for risks, complication which include but is not limited to infection, thromboembolic, neurovascular events, and wishes to proceed with the revision procedure. DESCRIPTION OF PROCEDURE: The patient was prepped and draped in usual sterile fashion. An anteromedial approach was made to the knee. The patella was subluxed laterally, cut transversely, sized to a 35. Drill holes were made and patellar protection plate was utilized. The drill holes placed in the distal femur in a 5 degree valgus. Distal femoral cut was made cutting behind the intact partial knee implant. The cut was made initially with the implant in place, completed later with the following implant removal to obtain appropriate distal femoral alignment. The implant was then carefully removed by undercutting the surfaces. Careful assessment and rotation utilizing the epicondylar axis and Whitesides line was utilized, and the femur was sized to a 7 femoral implant. A 7 was required which fit excellently in the AP. It was somewhat narrow in the diameter, but it produced appropriate posterior condylar cut and flexion space decompression. The tibial component was then carefully removed from the femur, and there was noted to be soft bone underneath. Therefore, decision was made to use a tantalum sleeve for metaphyseal fixation. Careful preparation for a medium-sized tantalum sleeve with appropriate drilling, burring, and careful broaching was performed. Following this, the tibia was subsequently sized to an H tibial component which provided excellent coverage and fit. Trial reductions were performed, and a 14 mm polyethylene produced excellent tracking, soft tissue tension, and alignment. Wounds were irrigated, and the site was prepared with a large quantity of pressurized irrigation. The tantalum sleeve was impacted down into an excellent position. Following this, the cement was mixed and the components were cemented. Tibial component was cemented initially inside the tantalum sleeve. The femoral component and patellar component were then completed. Excess cement was removed during the curing process. The tourniquet was let down. The deep Hemovac drain was left. Final construct was assembled with polyethylene. Excellent soft tissue tracking, flexion and extension, balance, and tracking was achieved. The patient was subsequently taken to the recovery room in stable condition. He tolerated the procedure well. There were no complications.
== END 2017-02-25 12:20 | disposition home or self-care (01) | DRG 468 ==
LOC: SAS 10:05 → OSC 16:57 → SAS 16:57 → OSC 16:57
PROVIDERS: ADMIT Orthopaedic Surgery; ATTEND Orthopaedic Surgery
PROC: 0SPC0JZ Removal of Synthetic Substitute from Right Knee Joint, Open Approach (ICD-10-PCS; 2017-02-23)
PROC: 0SRC0J9 Replacement of Right Knee Joint with Synthetic Substitute, Cemented, Open Approach (ICD-10-PCS; principal; 2017-02-23 07:30)
DX: T84.092A Other mechanical complication of internal right knee prosthesis, initial encounter (principal); T84.84XA Pain due to internal orthopedic prosthetic devices, implants and grafts, initial encounter